=== PATIENT | male | born 2005 | race Caucasian/White ===

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

== ENCOUNTER 2024-01-04 17:33 | Emergency (ER) | payer OTHER ==
[2024-01-04 18:00] VITALS: BP 101/63; PULSE 83; RESP 17; TEMP 98.2; BMI 25.4
== END 2024-01-04 19:36 | disposition home or self-care (01) ==
LOC: JERFT 17:33
DX: N48.21 Abscess of corpus cavernosum and penis (principal)
CPT/HCPCS: 99283-25